=== PATIENT | female | born 1940 | race Caucasian/White ===

== ENCOUNTER 2017-08-31 11:06 | Day surgery (SDC) | payer MEDICARE ==
[2017-08-31] VITALS (9 sets, daily range): BP systolic 138–181; BP diastolic 81–95; PULSE 64–76; TEMP 98.1–98.2
[~2017-08-31] VITALS: Ht 157.6 cm; Wt 79.5 kg
[2017-08-31] MEDS ORDERED: COZAAR 50MG50 MG/TAB PO (11:46)
[2017-08-31] MEDS ORDERED: CATAPRES 0.1MG0.1 MG PO (11:48)
[2017-08-31] MEDS ORDERED: COREG 25MG25 MG/TAB PO (11:49)
[2017-08-31] MEDS ORDERED: NORVASC 10MG10 MG PO (11:49)
[2017-08-31] MEDS ORDERED: K-DUR 10 MEQ T10 MEQ PO (11:50)
[2017-08-31] MEDS ORDERED: CRESTOR20 MG PO (11:50)
[2017-08-31] MEDS ORDERED: MELAT3MGTAB (11:51)
[2017-08-31 12:02] LABS: HEMOGLOBIN 12.4 g/dl (12.5-16.0); MEAN CELL VOLUME 87 fl (80.0-100.0); MEAN CORPUSCULAR HEMOGLOBIN 30 pg (27.0-31.0); MEAN CORPUSCULAR HGB CONC 34 g/dl (33.0-37.0); MEAN PLATELET VOLUME 10.9 fl (7.4-10.4); PLATELET COUNT 163 K/mm3 (130-400); REDCELL DISTRIBUTION WIDTH-CV 13.3 % (11.5-14.5)
[2017-08-31 12:03] LABS: HEMATOCRIT 36.6 % (37.0-47.0)
[2017-08-31 12:07] LABS: CALCIUM 9.2 mg/dL (8.4-10.2); CREATININE, serum 1.05 mg/dL (0.52-1.25); POTASSIUM 3.7 mmol/L (3.4-5.0)
[2017-08-31 12:11] LABS: PROTHROMBIN TIME 11.3 SECONDS (9.7-12.8)
== END 2017-08-31 18:10 | disposition home or self-care (01) ==
LOC: COL.CAR 11:06
PROVIDERS: Internal Medicine Interventional Cardiology
DX: I25.10 Atherosclerotic heart disease of native coronary artery without angina pectoris (principal); R60.0 Localized edema; R94.39 Abnormal result of other cardiovascular function study; I10 Essential (primary) hypertension; R00.1 Bradycardia, unspecified; I48.0 Paroxysmal atrial fibrillation; I34.0 Nonrheumatic mitral (valve) insufficiency; Z72.820 Sleep deprivation; Z88.0 Allergy status to penicillin; Z88.2 Allergy status to sulfonamides; Z88.1 Allergy status to other antibiotic agents
CPT/HCPCS: J2250; J3010; Q9967